=== PATIENT | female | born 1930 | race Caucasian/White ===

== ENCOUNTER 2017-01-09 12:28 | Emergency (ER) | payer MEDICARE | END 2017-01-09 13:52 | disposition home or self-care (01) | LOC: FER 12:28 | DX: R60.0 Localized edema (principal); R23.8 Other skin changes; I48.91 Unspecified atrial fibrillation; Z79.01 Long term (current) use of anticoagulants; Z79.899 Other long term (current) drug therapy | CPT/HCPCS: 73610; 73630; 99283 ==